=== PATIENT | female | born 2000 | race Caucasian/White ===

== ENCOUNTER 2021-01-09 17:35 | Emergency (ER) | payer OTHER ==
[~2021-01-09] VITALS: Ht 154.9 cm; Wt 68.0 kg
[~2021-01-09 17:35] MED LIST: PROVENTIL0.5 ML/2.5 IH; TUSICOF CAPLET1 EACH PO
[2021-01-09] MEDS ORDERED: SULFAMETHOXAZO1 EACH PO (19:01)
== END 2021-01-09 20:02 | disposition home or self-care (01) ==
LOC: EMR PED 17:35
DX: N39.0 Urinary tract infection, site not specified (principal); R30.0 Dysuria

== ENCOUNTER 2024-02-21 16:18 | Emergency (ER) | payer OTHER ==
[~2024-02-21] VITALS: Ht 152.4 cm; Wt 72.6 kg
[~2024-02-21 16:18] MED LIST changes: +SULFAMETHOXAZO1 EACH PO
[2024-02-21] MEDS ORDERED: ACETAMINOPHEN 500 MG GEL..CAP PO ONE (17:45)
[2024-02-21] MEDS ORDERED: GUAIFENESIN/DEXTROMETHORPHAN 10ML BLIST.PACK PO ONE (17:45)
[2024-02-21] MEDS ORDERED: DEXAMETHASONE SODIUM PHOSPHATE 4 MG/ML VIAL IM ONE (18:00)
[2024-02-21 18:38] LABS: HEMOGLOBIN 11.5 g/dL (12.0-15.00); MEAN CELL VOLUME 79.4 fL (80.00-100.00); MEAN CORPUSCULAR HGB CONC 32.8 g/dl (32.0-36.0); PLATELET COUNT 256 K/uL (150-450); RED BLOOD COUNT 4.41 M/uL (4.00-6.00); RED CELL DISTRIBUTION WIDTH 14.8 % (11.5-14.5)
== END 2024-02-21 20:15 | disposition home or self-care (01) ==
LOC: ER 16:20
PROVIDERS: Nurse Practitioner Family
DX: R53.81 Other malaise (principal); J11.1 Influenza due to unidentified influenza virus with other respiratory manifestations; Z20.822 Contact with and (suspected) exposure to COVID-19